=== PATIENT | female | born 1995 | race African-American/Black ===

== ENCOUNTER 2017-02-08 22:21 | Emergency (ER) | payer OTHER ==
[~2017-02-08] VITALS: Ht 170.2 cm; Wt 95.3 kg
[2017-02-09] MEDS ORDERED: IBUPROFEN 600600 M1 PO (00:20)
[2017-02-09] MEDS ORDERED: FLEXERIL PO (00:20)
[2017-02-09 00:39] VITALS: BP 130/72
== END 2017-02-09 00:40 | disposition home or self-care (01) ==
LOC: ER 22:21
DX: S39.012A Strain of muscle, fascia and tendon of lower back, initial encounter (principal); S00.93XA Contusion of unspecified part of head, initial encounter; F17.200 Nicotine dependence, unspecified, uncomplicated; F10.99 Alcohol use, unspecified with unspecified alcohol-induced disorder; V43.52XA Car driver injured in collision with other type car in traffic accident, initial encounter; Y93.89 Activity, other specified; Y92.89 Other specified places as the place of occurrence of the external cause; Y99.8 Other external cause status

== ENCOUNTER 2018-03-16 21:29 | Emergency (ER) | payer OTHER ==
[~2018-03-16] VITALS: Ht 170.2 cm; Wt 101.2 kg
[~2018-03-16 21:29] MED LIST: FLEXERIL PO; IBUPROFEN 600600 M1 PO
[2018-03-16] MEDS ORDERED: BIRTHCONTROL (21:57)
[2018-03-16] MEDS ORDERED: MOBIC15 MG PO (23:13)
[2018-03-16 23:39] VITALS: BP 127/93
== END 2018-03-16 23:55 | disposition home or self-care (01) ==
LOC: ER 21:29
DX: S39.012A Strain of muscle, fascia and tendon of lower back, initial encounter (principal); S60.212A Contusion of left wrist, initial encounter; F17.210 Nicotine dependence, cigarettes, uncomplicated; V49.09XA Driver injured in collision with other motor vehicles in nontraffic accident, initial encounter; Y93.89 Activity, other specified; Y92.89 Other specified places as the place of occurrence of the external cause; Y99.8 Other external cause status